=== PATIENT | male | born 1930 | race African-American/Black ===

== ENCOUNTER 2017-05-26 16:56 | Inpatient (IN) | payer MEDICARE, MEDICAID ==
[~2017-05-26] VITALS: Ht 175.3 cm; Wt 78.5 kg
[2017-05-26] MEDS ORDERED: SODIUM CHLORIDE 0.9% 1,000 ML IV ONE (17:40)
[2017-05-26 18:00] LABS: EOSINOPHILS % 8.1 % (0.0-5.0); HEMATOCRIT. 39.2 % (42.0-52.0); HEMOGLOBIN. 13.1 g/dL (14.0-18.0); LYMPHOCYTES % 35.5 % (20.0-50.0); MEAN CORPUSCULAR HEMOGLOBIN 29.1 pg (28.0-32.0); MEAN CORPUSCULAR VOLUME 86.8 fL (80.0-94.0); MEAN PLATELET VOLUME 7.6 fl (7.4-10.4); MONOCYTES % 14.1 % (2.0-8.0); NEUTROPHILS % 41.3 % (40.0-76.0); PLATELET 139 x1000/uL (130-400); RED BLOOD CELL COUNT 4.52 mill/uL (4.7-6.1); RED CELL DISTRIBUTION WIDTH 15.4 % (11.6-14.6)
[2017-05-26 18:05] LABS: CHLORIDE 109 mEq/L (98-107)
[2017-05-26 18:06] LABS: INR 1.1; PROTHROMBIN TIME 11.3 sec
[2017-05-26 18:09] LABS: AMMONIA 16 uMol/L (<32)
[2017-05-26 18:11] LABS: CARBON DIOXIDE 24 mEq/L (21-32); ETHANOL BLOOD 158 mg/dL
[2017-05-26 18:13] LABS: CREATINE KINASE 45 IU/L (39-308)
[2017-05-26 18:16] LABS: TROPONIN I < 0.02 ng/mL (0.00-0.04)
[2017-05-26] MEDS ORDERED: SODIUM CHLORIDE 0.9% 1000ML BAG (SEPSIS BOLUS) IV ONE (18:30)
[2017-05-26] MEDS ORDERED: ASPIRIN 325MG TABLET PO ONE (19:00)
[2017-05-26 22:00] VITALS: BP 132/68
[2017-05-26 23:53] VITALS: BP 143/70
[2017-05-27] MEDS ORDERED: DOCUSATE SODIUM 100MG CAPSULE PO PRN
[2017-05-27] MEDS ORDERED: ACETAMINOPHEN 325MG TABLET PO PRN
[2017-05-27] MEDS ORDERED: CHLORDIAZEPOXIDE 25MG CAPSULE PO PRN
[2017-05-27] MEDS: OMEPRAZOLE 20MG CAPSULE EXTENDED RELEASE PO SCH ×3 (00:48→20:43)
[2017-05-27] MEDS: THIAMINE HCL 100 MG/1 ML 2ML VIAL IM SCH ×2 (00:48→08:53)
[2017-05-27] MEDS: TRAMADOL HCL/ACETAMINOPHEN 37.5/325MG TABLET PO PRN ×2 (02:28→12:13)
[2017-05-27] MEDS: DEXT 5%/0.45% NACL KCL 20MEQ/L 1,000 ML IV SCH ×2 (02:28→17:15)
[2017-05-27 06:45] VITALS: BP 134/72
[2017-05-27 07:13] LABS: CREATINE KINASE MB FRACTION 1.4 ng/mL (0.5-3.6); TROPONIN I 0.02 ng/mL (0.00-0.04)
[2017-05-27 08:00] VITALS: BP 138/82
[2017-05-27] MEDS: MULTIVITAMINS,THER W-MINERALS TABLET PO SCH (08:53)
[2017-05-27] MEDS: ENOXAPARIN 40MG/0.4ML SYR SUBCUT SCH (08:58)
[2017-05-27 09:10] LABS: CLARITY URINE CLEAR (CLEAR); COLOR URINE YELLOW (YELLOW); GLUCOSE URINE NEGATIVE (NEGATIVE); KETONES URINE TRACE (NEGATIVE); LEUKOCYTE ESTERASE URINE NEGATIVE (NEGATIVE); NITRITE URINE NEGATIVE (NEGATIVE); OCCULT BLOOD URINE NEGATIVE (NEGATIVE); PH URINE 5.5 (4.5-8.0); PROTEIN URINE NEGATIVE (NEGATIVE); SPECIFIC GRAVITY URINE 1.022 (1.005-1.030)
[2017-05-27 09:32] LABS: *AMPHETAMINES SCREEN URINE NEGATIVE (NEGATIVE); *BARBITURATES SCREEN URINE NEGATIVE (NEGATIVE); *BENZODIAZEPINES SCREEN URINE NEGATIVE (NEGATIVE); *COCAINE SCREEN URINE NEGATIVE (NEGATIVE); CANNABINOID URINE SCREEN NEGATIVE (NEGATIVE); METHADONE URINE SCREEN NEGATIVE (NEGATIVE); OPIATES URINE SCREEN PRESUMTIVE POSITIVE (NEGATIVE); PHENCYCLIDINE URINE SCREEN NEGATIVE (NEGATIVE)
[2017-05-27 16:27] LABS: CREATINE KINASE MB FRACTION 0.6 ng/mL (0.5-3.6); TROPONIN I 0.03 ng/mL (0.00-0.04)
[2017-05-27] MEDS: ACETAMINOPHEN WITH CODEINE 300/30MG TABLET PO PRN ×2 (16:57→21:21)
[2017-05-27 20:00] VITALS: BP 133/73
[2017-05-27 23:47] LABS: TROPONIN I 0.03 ng/mL (0.00-0.04)
[2017-05-28] VITALS: BP 141/67
[2017-05-28 04:00] VITALS: BP 143/73
[2017-05-28] MEDS: DEXT 5%/0.45% NACL KCL 20MEQ/L 1,000 ML IV SCH (05:40)
[2017-05-28] MEDS: ACETAMINOPHEN WITH CODEINE 300/30MG TABLET PO PRN ×4 (06:22→22:12)
[2017-05-28] MEDS: OMEPRAZOLE 20MG CAPSULE EXTENDED RELEASE PO SCH (06:23)
[2017-05-28 06:32] LABS: HEMATOCRIT. 36.2 % (42.0-52.0); HEMOGLOBIN. 12.1 g/dL (14.0-18.0); MEAN CORPUSCULAR VOLUME 86.8 fL (80.0-94.0); PLATELET 114 x1000/uL (130-400); RED BLOOD CELL COUNT 4.17 mill/uL (4.7-6.1); RED CELL DISTRIBUTION WIDTH 15.3 % (11.6-14.6)
[2017-05-28 07:49] LABS: CHLORIDE 106 mEq/L (98-107)
[2017-05-28 08:00] VITALS: BP 147/75
[2017-05-28 08:07] LABS: CARBON DIOXIDE 25 mEq/L (21-32); PHOSPHORUS 2.8 mg/dL (2.5-4.9)
[2017-05-28] MEDS: MULTIVITAMINS,THER W-MINERALS TABLET PO SCH (08:36)
[2017-05-28] MEDS: THIAMINE HCL 100 MG/1 ML 2ML VIAL IM SCH (08:36)
[2017-05-28] MEDS: ENOXAPARIN 40MG/0.4ML SYR SUBCUT SCH (08:40)
[2017-05-28] MEDS: MAGNESIUM/ALUMINUM HYDROXIDE/SIMETHICONE 30ML UDC PO PRN ×2 (08:43→22:12)
[2017-05-28 12:00] VITALS: BP 145/71
[2017-05-28 12:43] LABS: PLATELET ESTIMATE SLIGHTLY DECREASED
[2017-05-28] MEDS ORDERED: GUAIFENESIN-DM 200MG-20MG/10ML UDC PO PRN (13:00)
[2017-05-28] MEDS: AMLODIPINE 10MG TABLET PO SCH (13:48)
[2017-05-28 16:00] VITALS: BP 153/74
[2017-05-28 20:00] VITALS: BP 158/77
[2017-05-29 00:08] VITALS: BP 147/78
[2017-05-29 04:00] VITALS: BP 127/89
[2017-05-29 08:00] VITALS: BP 127/64
[2017-05-29] MEDS: DEXT 5%/0.45% NACL KCL 20MEQ/L 1,000 ML IV SCH ×2 (08:20→21:40)
[2017-05-29] MEDS: THIAMINE HCL 100 MG/1 ML 2ML VIAL IM SCH (08:40)
[2017-05-29] MEDS: AMLODIPINE 10MG TABLET PO SCH (08:40)
[2017-05-29] MEDS: ENOXAPARIN 40MG/0.4ML SYR SUBCUT SCH (08:41)
[2017-05-29] MEDS: MULTIVITAMINS,THER W-MINERALS TABLET PO SCH (08:46)
[2017-05-29] MEDS ORDERED: FAMOTIDINE 20MG TABLET PO SCH (09:00)
[2017-05-29] MEDS: MAGNESIUM/ALUMINUM HYDROXIDE/SIMETHICONE 30ML UDC PO PRN ×2 (10:45→17:59)
[2017-05-29] MEDS: ACETAMINOPHEN WITH CODEINE 300/30MG TABLET PO PRN ×2 (10:46→19:28)
[2017-05-29 12:00] VITALS: BP 127/69
[2017-05-29 16:00] VITALS: BP 123/63
[2017-05-29 19:21] VITALS: BP 123/74
[2017-05-29] MEDS: FAMOTIDINE 20MG TABLET PO SCH (20:55)
[2017-05-30 00:20] VITALS: BP 118/68
[2017-05-30] MEDS: MAGNESIUM/ALUMINUM HYDROXIDE/SIMETHICONE 30ML UDC PO PRN ×2 (00:48→08:40)
[2017-05-30] MEDS: ACETAMINOPHEN WITH CODEINE 300/30MG TABLET PO PRN ×2 (00:49→08:39)
[2017-05-30 04:00] VITALS: BP 116/63
[2017-05-30] MEDS: MULTIVITAMINS,THER W-MINERALS TABLET PO SCH (08:39)
[2017-05-30] MEDS: ENOXAPARIN 40MG/0.4ML SYR SUBCUT SCH (08:40)
[2017-05-30] MEDS: FAMOTIDINE 20MG TABLET PO SCH (08:40)
[2017-05-30] MEDS: AMLODIPINE 10MG TABLET PO SCH (08:40)
[2017-05-30] MEDS: DEXT 5%/0.45% NACL KCL 20MEQ/L 1,000 ML IV SCH (11:00)
[2017-05-30 11:36] VITALS: BP 110/67
== END 2017-05-30 13:15 | disposition home or self-care (01) | DRG 897 ==
LOC: ER 17:38 → 6WST 19:13 → EDBEDREQ 19:16 → ENRESERV 19:49
PROVIDERS: ADMIT Internal Medicine Pulmonary Disease; ATTEND Internal Medicine Pulmonary Disease
DX: F10.229 Alcohol dependence with intoxication, unspecified (principal); E87.2 Acidosis; I95.9 Hypotension, unspecified; J44.9 Chronic obstructive pulmonary disease, unspecified; Y90.6 Blood alcohol level of 120-199 mg/100 ml; I10 Essential (primary) hypertension; K21.9 Gastro-esophageal reflux disease without esophagitis; R07.89 Other chest pain; I45.10 Unspecified right bundle-branch block; Z59.0 Homelessness; Z88.0 Allergy status to penicillin
CPT/HCPCS: 36415; 70450; 71010; 80048; 80053; 80305; 81003; 82140; 82550; 82553; 82962; 83605; 83690; 83735; 84100; 84484; 85025; 85610; 87040; 93005; 96360; 96361; 99285; G0482; J1650; J3411; J7030; J7040